=== PATIENT | female | born 1945 | race Caucasian/White ===

== ENCOUNTER 2017-11-20 02:24 | Outpatient (CLI) | payer MEDICARE, BC, SELFPAY ==
[2017-11-20 13:23] LABS: ALT 21 U/L (12-78); AST 24 U/L (15-37); Albumin 3.8 g/dL (3.4-5.0); Alkaline Phosphatase 72 U/L (46-116); Anion Gap 10.1 mmol/L (3-11); BUN 10 mg/dL (7-18); Bilirubin, Total 0.4 mg/dL (0.2-1.0); CO2 27.9 mmol/L (21.0-32.0); CREATININE 0.78 mg/dL (0.55-1.02); Calcium 8.7 mg/dL (8.5-10.1); Chloride 105 mmol/L (98-107); Cholesterol 248 mg/dL (50-200); Glucose 96 mg/dL (70-100); HDL Cholesterol 58 mg/dL (40-60); LDL CHOLESTEROL 176 mg/dL (<100); Potassium 3.8 mmol/L (3.5-5.1); Sodium 143 mmol/L (136-145); Total Protein 7.2 g/dL (6.4-8.2); Triglyceride 104 mg/dL (30-150)
== END 2017-11-20 02:44 ==
PROVIDERS: PCP Family Medicine; Visit Provider Family Medicine
DX: E78.5 Hyperlipidemia, unspecified (principal); R73.01 Impaired fasting glucose
CPT/HCPCS: 36415; 80053; 80061; 83721

== ENCOUNTER 2018-07-02 08:26 | Outpatient (CLI) | payer MEDICARE, BC, SELFPAY ==
[2018-07-02 10:58] LABS: Abs Immature Grans 0.01 k/cumm (0.0-0.09); Absolute Basophil Count 0.04 k/cumm (0.0-0.2); Absolute Eosinophil Count 0.08 k/cumm (0.0-0.7); Absolute Lymphocyte Count 1.75 k/cumm (1.2-3.4); Absolute Monocyte Count 0.39 k/cumm (0.11-0.7); Absolute Neutrophil Count 4.14 k/cumm (1.2-6.7); Basophils % 0.6; Eosinophils % 1.2; HCT 43.6 % (36.0-46.0); Immature Grans % 0.2; Lymphocytes % 27.3; Mean Corp. HGB Concentration 32.1 g/dL (32.0-36.0); Mean Corpuscular Volume 90.3 fL (80-95); Mean Platelet Volume 11.2 fL (8.0-11.0); Monocytes % 6.1; Neutrophils % 64.6; Platelet Count 326 x1000/uL (130-400); RBC 4.83 m/cumm (4.00-5.20); RBC Distribution Width 14.4 % (11.7-14.6); White Blood Cell Count 6.41 k/cumm (4.4-10.8)
[2018-07-02 11:37] LABS: ALT 27 U/L (12-78); AST 22 U/L (15-37); Alkaline Phosphatase 65 U/L (46-116); Anion Gap 9.6 mmol/L (3-11); BUN 18 mg/dL (7-18); Bilirubin, Total 0.4 mg/dL (0.2-1.0); CO2 28.4 mmol/L (21.0-32.0); CREATININE 0.81 mg/dL (0.55-1.02); Calcium 9.4 mg/dL (8.5-10.1); Chloride 104 mmol/L (98-107); Cholesterol 206 mg/dL (50-200); Glucose 114 mg/dL (70-100); HDL Cholesterol 59 mg/dL (40-60); LDL CHOLESTEROL 128 mg/dL (<100); Potassium 4.5 mmol/L (3.5-5.1); Sodium 142 mmol/L (136-145); Total Protein 7.6 g/dL (6.4-8.2); Triglyceride 107 mg/dL (30-150)
[2018-07-03 06:38] LABS: Vitamin D 25 Total 19.3 ng/ml (30-100)
== END 2018-07-02 08:46 ==
PROVIDERS: PCP Family Medicine; Visit Provider Family Medicine
DX: R53.83 Other fatigue (principal); I10 Essential (primary) hypertension; E55.9 Vitamin D deficiency, unspecified; E78.5 Hyperlipidemia, unspecified
CPT/HCPCS: 36415; 80053; 80061; 82306; 83721; 84443; 85025

== ENCOUNTER 2018-11-24 08:57 | Outpatient (CLI) | payer MEDICARE, BC, SELFPAY ==
[2018-11-24 13:44] LABS: Vitamin D 25 Total 15.9 ng/ml (30-100)
== END 2018-11-24 09:17 ==
PROVIDERS: PCP Family Medicine; Visit Provider Family Medicine
DX: E55.9 Vitamin D deficiency, unspecified (principal)
CPT/HCPCS: 36415; 82306

== ENCOUNTER 2019-07-14 10:54 | Outpatient (CLI) | payer OTHER, SELFPAY ==
--- NOTE | 2019-07-14 09:55 | DI.RAD_ITS ---
EXAM: XR SHOULDER LT COMPLETE 2+V CLINICAL HISTORY: lt shoulder pain. TECHNIQUE: 2D digital imaging was performed. COMPARISON: CR LEFT SHOULDER COMPLETE from 07/25/2016 CR LEFT SHOULDER COMPLETE from 07/25/2017 FINDINGS: BONES: The patient has a left shoulder replacement. There are osseous fragments seen at the inferior aspect of the glenoid. These were not present on the prior examination. Fracture should be conside red. The acuity is indeterminate. JOINTS: No dislocation present. SOFT TISSUE: Normal. IMPRESSION: 1. Left shoulder replacement. 2. Osseous fragments associated with the glenoid seen on the prior examination. A fracture of indete rminate acuity is suggested. A CT scan may be considered for further evaluation. DATA REPOSITORY: RADIATION DOSE DELIVERED:
== END 2019-07-14 11:14 ==
PROVIDERS: PCP Family Medicine; Referring Provider Family Medicine; Visit Provider Physician Assistant Surgical
DX: M25.512 Pain in left shoulder (principal); Z96.612 Presence of left artificial shoulder joint
CPT/HCPCS: 73030

== ENCOUNTER 2019-10-16 00:53 | Outpatient (CLI) | payer MEDICARE, BC, SELFPAY ==
[2019-10-16 13:09] LABS: ALT 24 U/L (14-59); AST 15 U/L (15-37); Albumin 3.8 g/dL (3.4-5.0); Alkaline Phosphatase 58 U/L (46-116); Anion Gap 8.6 mmol/L (3-11); BUN 16 mg/dL (7-18); Bilirubin, Total 0.3 mg/dL (0.2-1.0); CO2 28.4 mmol/L (21.0-32.0); CREATININE 0.81 mg/dL (0.55-1.02); Calcium 9.6 mg/dL (8.5-10.1); Calculated LDL 122 mg/dL (<100); Chloride 103 mmol/L (98-107); Cholesterol 193 mg/dL (<200); Glucose 118 mg/dL (74-106); HDL Cholesterol 53 mg/dL (40-60); Potassium 4.3 mmol/L (3.5-5.1); Sodium 140 mmol/L (136-145); Triglyceride 91 mg/dL (<150)
[2019-10-19 09:10] LABS: Vitamin D 25 Total 19.7 ng/ml (30-100)
== END 2019-10-16 01:13 ==
PROVIDERS: PCP Family Medicine; Visit Provider Family Medicine
DX: E55.9 Vitamin D deficiency, unspecified (principal); E78.5 Hyperlipidemia, unspecified
CPT/HCPCS: 36415; 80053; 80061; 82306

== ENCOUNTER 2020-06-22 01:18 | Outpatient (CLI) | payer MEDICARE, BC, SELFPAY ==
--- NOTE | 2020-06-22 07:00 | DI.RAD_ITS ---
EXAM: RF BARIUM SWALLOW UGI CLINICAL HISTORY: dysphagia with solids and dyspepsia,EPIGASTRIC PAIN,R10.13,R13.10 TECHNIQUE: 2D and real-time digital imaging was performed. CONTRAST MATERIAL: Both single and air contrast examinations were performed. Performed standing and recumbent COMPARISON: No exams were available for comparison FINDINGS: There is a large lamellated calcification in the right upper quadrant which is most probably a gallst one. Esophagus: Swallowing mechanism is grossly intact. There is no evidence of aspiration. No hypertens e upper esophageal sphincter. No Zenker's diverticulum. No fixed lesions seen in the esophagus. No hiatal hernia. However, there was a Schatzki ring demonstrated in the lower esophagus. No prominent reflux demonstrated. Stomach: No fixed lesions seen. No ulcer craters. Duodenum: No ulcer craters. No diverticuli. No strictures. Normal caliber. IMPRESSION: 1. There is a Schatzki ring demonstrated in the lower esophagus. This may be causing this patient's symptoms. No fixed neoplastic appearing lesions seen. 2. Stomach and duodenal C-loop appear unremarkable. 3. Incidentally noted is a large lamellated gallstone. This may be cause this patient's symptoms. R ecommend follow-up gallbladder ultrasound. RADIATION DOSE DELIVERED: sobia Issa= 52.9 mGy
[2020-06-22] MEDS: Barium Sulfate 60% W/V 355 ML BTL PO (10:27)
== END 2020-06-22 01:38 ==
PROVIDERS: PCP Family Medicine; Visit Provider Family Medicine
DX: R10.13 Epigastric pain (principal); R13.10 Dysphagia, unspecified; K22.2 Esophageal obstruction; K80.80 Other cholelithiasis without obstruction
CPT/HCPCS: 74221; 74246; J3490

== ENCOUNTER 2020-07-20 09:39 | Outpatient (CLI) | payer OTHER, SELFPAY ==
--- NOTE | 2020-07-20 09:41 | DI.RAD_ITS ---
Exam(s) XR SHOULDER LT COMPLETE 2+V EXAM: XR SHOULDER LT COMPLETE 2+V CLINICAL HISTORY: left shoulder pain. TECHNIQUE: 2D digital imaging was performed. COMPARISON: CR XR SHOULDER LT COMPLETE 2+V from 07/14/2019 FINDINGS: Again noted is a left shoulder prosthesis. This exhibits stable position. No fracture or loosening evident. Soft tissue calcific densities again noted. No radiographic evidence of osteomyelitis. Ip silateral AC joint appears unremarkable. IMPRESSION: DATA REPOSITORY: RADIATION DOSE DELIVERED:
== END 2020-07-20 09:40 | disposition home or self-care (01) ==
LOC: DIORS 09:40
PROVIDERS: PCP Family Medicine; Referring Provider Family Medicine; Visit Provider Student in an Organized Health Care Education/Training Program
DX: M25.512 Pain in left shoulder (principal); Z96.612 Presence of left artificial shoulder joint
CPT/HCPCS: 73030

== ENCOUNTER 2020-08-23 03:10 | Outpatient (CLI) | payer MEDICARE, BC, SELFPAY ==
[2020-08-23 12:29] LABS: ESR 10 mm/hr (0-30)
[2020-08-23 12:41] LABS: C-Reactive Protein 0.32 mg/dL (0.0-0.3)
[2020-08-24 10:37] LABS: Lyme Ab w Rflx to Lyme Confirm Negative (Negative)
[2020-08-25 00:51] LABS: Vitamin D 25 Total 24.9 ng/mL (30-100)
== END 2020-08-23 03:11 | disposition home or self-care (01) ==
LOC: LOS 03:10
PROVIDERS: PCP Family Medicine; Visit Provider Family Medicine
DX: M25.59 Pain in other specified joint; E55.9 Vitamin D deficiency, unspecified; W57.XXXA Bitten or stung by nonvenomous insect and other nonvenomous arthropods, initial encounter; T14.8XXA Other injury of unspecified body region, initial encounter
CPT/HCPCS: 36415; 82306; 85652; 86140; 86618

== ENCOUNTER 2021-06-21 04:31 | Outpatient (CLI) | payer MEDICARE, BC, SELFPAY ==
[2021-06-21 10:55] LABS: ALT 26 U/L (14-59); AST 21 U/L (15-37); Alkaline Phosphatase 65 U/L (46-116); Anion Gap 9.4 mmol/L (3-11); BUN 16 mg/dL (7-18); Bilirubin, Total 0.4 mg/dL (0.2-1.0); CO2 26.6 mmol/L (21.0-32.0); CREATININE 0.8 mg/dL (0.55-1.02); Calcium 9.1 mg/dL (8.5-10.1); Calculated LDL 105 mg/dL (<100); Chloride 105 mmol/L (98-107); Cholesterol 176 mg/dL (<200); Glucose 106 mg/dL (74-106); HDL Cholesterol 58 mg/dL (40-60); Potassium 4.4 mmol/L (3.5-5.1); Sodium 141 mmol/L (136-145); Total Protein 7.5 g/dL (6.4-8.2); Triglyceride 65 mg/dL (<150)
== END 2021-06-21 04:32 | disposition home or self-care (01) ==
LOC: LBO 04:32
PROVIDERS: PCP Nurse Practitioner Family; Visit Provider Family Medicine
DX: E78.5 Hyperlipidemia, unspecified (principal)
CPT/HCPCS: 36415; 80053; 80061

== ENCOUNTER 2022-08-08 03:40 | Outpatient (CLI) | payer MEDICARE, BC, SELFPAY ==
[2022-08-08 12:56] LABS: BUN 15 mg/dL (7-18); CREATININE 0.8 mg/dL (0.55-1.02); Calcium 9.1 mg/dL (8.5-10.1); Calculated LDL 100 mg/dL (<100); Chloride 105 mmol/L (98-107); Cholesterol 182 mg/dL (<200); Estimated GFR 77.27 (mL/min/1.73m2); Glucose 111 mg/dL (74-106); HDL Cholesterol 61 mg/dL (40-60); Potassium 3.3 mmol/L (3.5-5.1); Sodium 142 mmol/L (136-145); Triglyceride 107 mg/dL (<150)
[2022-08-08 13:36] LABS: Hemoglobin A1C 5.9 % (<5.7)
== END 2022-08-08 03:41 | disposition home or self-care (01) ==
LOC: LOS 03:41
PROVIDERS: PCP Nurse Practitioner Family; Visit Provider Nurse Practitioner Family
DX: I10 Essential (primary) hypertension (principal); R73.01 Impaired fasting glucose; E78.5 Hyperlipidemia, unspecified
CPT/HCPCS: 36415; 80048; 80061; 83036

== ENCOUNTER 2022-11-07 03:33 | Outpatient (CLI) | payer MEDICARE, BC, SELFPAY ==
[2022-11-07 13:32] LABS: Potassium 3.9 mmol/L (3.5-5.1)
== END 2022-11-07 03:34 | disposition home or self-care (01) ==
LOC: LBO 03:33
PROVIDERS: PCP Nurse Practitioner Family; Visit Provider Nurse Practitioner Family
DX: E87.6 Hypokalemia (principal)
CPT/HCPCS: 36415; 84132

== ENCOUNTER 2023-07-10 09:09 | Outpatient (CLI) | payer MEDICARE, BC, SELFPAY ==
[2023-07-10 10:55] LABS: Lab Add On Test DONE
[2023-07-10 12:21] LABS: Abs Immature Grans 0.03 10^3/uL (0.0-0.06); Absolute Basophil Count 0.08 10^3/uL (0.0-0.2); Absolute Eosinophil Count 0.11 10^3/uL (0.0-0.7); Absolute Lymphocyte Count 2.15 10^3/uL (1.2-3.4); Absolute Monocyte Count 0.58 10^3/uL (0.1-0.8); Absolute Neutrophil Count 5.14 10^3/uL (1.2-6.7); Eosinophils % 1.4 %; HCT 42.5 % (36.0-46.0); HGB 13.6 g/dL (11.2-15.7); Immature Grans % 0.4 %; Lymphocytes % 26.6 %; MCH 29.8 pg (27.0-33.0); MCV 93 fL (80-95); MPV 10.5 fL (8.0-11.0); Monocytes % 7.2 %; Neutrophils % 63.4 %; Platelet Count 359 10^3/uL (130-400); RBC 4.56 10^6/uL (3.93-5.22); RDW 13.3 % (11.7-14.6); RDW-SD 45.3 fL; WBC 8.09 10^3/uL (4.4-10.8)
[2023-07-10 12:35] LABS: ALT 24 U/L (14-59); AST 20 U/L (15-37); Alkaline Phosphatase 64 U/L (46-116); Anion Gap 9.4 mmol/L (3-11); BUN 17 mg/dL (7-18); Bilirubin, Total 0.5 mg/dL (0.2-1.0); CO2 27.6 mmol/L (21.0-32.0); Calcium 9.3 mg/dL (8.5-10.1); Chloride 105 mmol/L (98-107); Estimated GFR 58.75 (mL/min/1.73m2); Glucose 122 mg/dL (74-106); Potassium 3.8 mmol/L (3.5-5.1); Sodium 142 mmol/L (136-145); Total Protein 7.9 g/dL (6.4-8.2)
[2023-07-10 12:54] LABS: Calculated LDL 128 mg/dL (<100); Cholesterol 210 mg/dL (<200); HDL Cholesterol 64 mg/dL (40-60); Triglyceride 94 mg/dL (<150)
[2023-07-10 13:02] LABS: Hemoglobin A1C 6.3 % (<5.7)
[2023-07-10 13:17] LABS: Vitamin D 25 Total 21.9 ng/mL (30-100)
[2023-07-11 10:16] LABS: Hepatitis C Ab w Rflx HCV PCR Negative (Negative)
== END 2023-07-10 09:10 | disposition home or self-care (01) ==
LOC: LOS 09:09
PROVIDERS: PCP Nurse Practitioner Family; Visit Provider Nurse Practitioner Family
DX: Z11.59 Encounter for screening for other viral diseases (principal); R73.03 Prediabetes; Z00.00 Encounter for general adult medical examination without abnormal findings; R10.13 Epigastric pain; E78.5 Hyperlipidemia, unspecified
CPT/HCPCS: 36415; 80053; 80061; 82306; 86803; 83036; 85025

== ENCOUNTER 2024-08-11 03:31 | Outpatient (CLI) | payer MEDICARE, BC, SELFPAY ==
[2024-08-11 13:25] LABS: Anion Gap 7.9 mmol/L (3-11); BUN 15 mg/dL (7-18); CO2 29.1 mmol/L (21.0-32.0); Calcium 9.1 mg/dL (8.5-10.1); Calculated LDL 107 mg/dL (<100); Chloride 103 mmol/L (98-107); Cholesterol 178 mg/dL (<200); Estimated GFR 58.39 (mL/min/1.73m2); Glucose 131 mg/dL (74-106); HDL Cholesterol 51 mg/dL (>or=50); Sodium 140 mmol/L (136-145); Triglyceride 102 mg/dL (<150); Vitamin D 25 Total 22 ng/mL (30-100)
== END 2024-08-11 03:32 | disposition home or self-care (01) ==
LOC: LOS 03:31
PROVIDERS: PCP Nurse Practitioner Family; Visit Provider Nurse Practitioner Family
DX: E78.5 Hyperlipidemia, unspecified (principal); R73.03 Prediabetes; E55.9 Vitamin D deficiency, unspecified; I10 Essential (primary) hypertension
CPT/HCPCS: 36415; 80048; 80061; 82306

== ENCOUNTER 2024-08-13 15:58 | Emergency (ER) | payer MEDICARE, BC, SELFPAY ==
[2024-08-13 15:55] VITALS: BP 119/47; PULSE 88; RESP 20; TEMP 37.2; O2SAT 98
[2024-08-13 16:00] VITALS: BP 119/47; PULSE 88; RESP 20; TEMP 37.2; O2SAT 98
--- NOTE | 2024-08-13 16:00 | RT.EKG_ITS ---
APPROVED REPORT Exam: Resting ECG Reason for Exam: syncope Patient Location: E HR:92 bpm ECG Measurements Heart Rate 92 AXIS AR 171 P 81 QRSd 73 QRS 45 QT 387 T 58 QTc 479 Conclusion Sinus rhythm...normal P axis, V-rate 60- 99 Low voltage, precordial leads...precordial leads <1.0mV
--- NOTE | 2024-08-13 16:05 | ED.GENADUL_ITS ---
Discharge Plan Disposition Patient Disposition: Home Condition: Stable Discharge Details Clinical Impression: Heat exhaustion Primary Care Provider: Isabela Urrutia ED Provider: Ar Osullivan Home Meds and New Rx's Prescriptions: Continued cholecalciferol (vitamin D3) 50 mcg (2,000 unit) capsule 2,000 unit PO DAILY Qty: 90 3RF Rx Instructions: Take 1 daily aspirin 325 MG tablet 325 mg PO HS Qty: 1 Centrum Complete 1 EACH tablet 1 tab-cap PO DAILY Patient Comments: taking centrum silver for women.HE lovastatin 20 mg tablet 20 mg PO DAILY Qty: 90 3RF losartan 50 mg tablet See Rx Instructions .ROUTE .COMPLEX Qty: 90 3RF Dose Instruction: TAKE 1 TABLET BY MOUTH DAILY Rx Instructions: TAKE 1 TABLET BY MOUTH DAILY Discharge Instructions Additional Instructions: Your labs do not show any concerning findings at this time. Try to be in shade when it is hot and olga out. Follow-up with your primary care provider as needed. If you feel significantly more ill or have new symptoms such as difficulty breathing or severe abdominal chest pain return to the emergency department for reevaluation. HPI General Mode of arrival: EMS . Date/Time Provider Initiated Documentation: 08/13/24 16:00 . Limitations to Documentation: no limitations . Information obtained by: patient . History of Present Illness 78 year old F presents to the emergency department with the chief complaint of lethargic after being outside in hot weather, described as moderate, Patient started experiencing this hour(s) (1) No relieving factors improve symptom(s), No exacerbating factors reported . Patient notes denies chest pain and shortness of breath. Patient did receive the following treatments prior to arrival, none Related Data Home Medications ?Medication ?Instructions ?Recorded ?Confirmed aspirin 325 mg tablet 325 mg PO HS #1 tab-cap /05/0708/13/24 multivitamin-ferrous 1 tab-cap PO DAILY 07/16/13 08/13/24 fumarate-folic acid 18 mg-400 mcg tablet (Centrum Complete) cholecalciferol (vitamin D3) 50 2,000 unit PO DAILY #9 0 caps 08/07/23 08/13/24 mcg (2,000 unit) capsule lovastatin 20 mg tablet 20 mg PO DAILY #90 tabs 11/03/2008/13/24 losartan 50 mg tablet See Rx Instructions .Route 0 07/07/24 08/13/24 .COMPLEX #90 tabs Previous Rx's ?Medication ?Instructions ?Recorded cholecalciferol (vitamin D3) 50 2,000 unit PO DAILY #9 0 caps 08/07/23 mcg (2,000 unit) capsule lovastatin 20 mg tablet 20 mg PO DAILY #90 tabs 12/26 03/20 losartan 50 mg tablet See Rx Instructions .Route 0 07/07/24 .COMPLEX #90 tabs Allergies Allergy/AdvReac Type Severity Reaction Status Date / Time nitrofurantoin Allergy Intermediate Unknown Verified 08/13/24 16:01 macrocrystalline (From Macrodantin) codeine AdvReac Severe NAUSEA, Verified 08/13/24 16:01 VOMITING amlodipine AdvReac headaches Verified 08/13/24 16:01 Influenza Virus Vaccines AdvReac Makes me Verified 08/13/24 16:01 sick General Stated Complaint: AMS/LOC NABEEL: 3 Review of Systems All systems reviewed & are unremarkable except as noted in HPI and below Constitutional Constitutional: Denies chills, Denies fever(s) and Reports weakness Cardiovascular Cardiovascular: Denies chest pain and Denies dyspnea Respiratory Respiratory: Denies cough and Denies dyspnea Gastrointestinal Gastrointestinal: Denies abdominal pain, Denies nausea and Denies vomiting Neurologic Neurologic: Reports weakness Exam Const General: no acute distress Orientation: alert [facility] Head: normal to inspection Ears: external ears normal General nose exam: external nose normal Mouth: moist mucous membranes Eyes General: appearance normal, both eyes and all related structures Neck Neck: normal visual inspection Resp Effort & Inspection: normal respiratory effort and able to speak in complete sentences Auscultation: clear to auscultation bilaterally Cardio Rate: regular rate GI Palpation: soft and nontender Skin General skin exam: no rashes or lesions noted Neuro General: patient alert and patient oriented x3 Extrem General: normal to inspection Psych Mental Status: mental status grossly normal Course Vital Signs Vital signs: Vital Signs Temperature 37.2 C 08/13/24 15:55 Pulse 88 08/13/24 15:55 Respiratory Rate 08/13/24 15:55 Blood Pressure 119/47 L 08/13/24 15:55 Pulse Oximetry 98 08/13/24 15:55 Temperature 37.2 C 08/13/24 16:00 Pulse 88 08/13/24 16:00 Respiratory Rate 20 08/13/24 16:00 Blood Pressure 119/47 L 08/13/24 16:00 Pulse Oximetry 98 08/13/24 16:00 Oxygen Delivery Method Room Air 08/13/24 16:00 Oxygen Flow Rate 0 08/13/24 16:00 Pain Level 0 08/13/24 16:00 Medical Decision Making 78-year-old female with a history of prediabetes, hypertension, hyperlipidemia comes in with EMS after she was outside picking strawberries when she began to feel lightheaded and weak and had to crawl back to the house. EMS was called and they transported her here give her 500 mL of IV fluids. Patient is currently alert and oriented x 4 but does appear tired. She denies any headache, chest pain, difficulty breathing, abdominal pain. She is moving all extremities equally. I suspect heatstroke as it is hot and humid today. Will check CBC, CMP, troponins and EKG and treat with cool IV fluids and reassess. Will also check a CPK. Patient's labs without emergent findings. She is feeling better. states she was outside for quite some time so likely did overheat. Will see if she is able to ambulate on her own and if she is able to will plan for discharge. Patient was still having some nausea so was given Zofran and then seemed like she was anxious and given low-dose 0.5 mg of Ativan. 15 minutes later she felt significantly better requesting discharge and was able to stand up and move. She was instructed to stay out of the heat and stay in shade when it is hot out if she goes outside. She will follow-up with her PCP if needed and return precautions given Differential Diagnosis Differential Diagnosis: Dehydration, heatstroke Lab Data Lab results reviewed: Yes I reviewed the patient's lab results. ECG Data Attestation: I personally reviewed and interpreted this ECG (s) as follows: Prior ECG tracings: not available for review Interpretation: sinus rate of 92 pr 171 no stemi Quality:SDOH Health Related Social Needs: Health related social needs education PFSH All Active Problems (Updated 08/13/24 @ 18:31 by Ar Osullivan MD) Heat exhaustion (Acute) Prediabetes (Chronic) Hypertension (Chronic) Hyperlipidemia (Chronic) Arthritis of left shoulder region (Chronic) Dysphagia (Chronic) Vitamin D deficiency (Chronic) Surgical History S/P right inguinal hernia repair History of bilateral tubal ligation Status post appendectomy History of hemiarthroplasty of left shoulder (2002) Family History Mother , 84 Heart disease Hyperlipidemia Father , 82 Diabetes Stroke Hypertension Brother , 60 Cancer some type of abdominal cancer Hypertension Sister Heart disease Sister No problems noted. Sister No problems noted. Son No problems noted. Son No problems noted. Maternal Grandfather Prostate cancer Maternal Grandmother Thyroid disorder Paternal Grandfather No problems noted. Paternal Grandmother No problems noted. Social History Smoking/Tobacco Use Status: Never Tobacco: How many years used: 0 Second Hand Exposure: Yes Smoking risk assessment performed?: Yes Alcohol Intake: current Alcohol Intake frequency: holidays/special occasions only Alcohol type: wine Drug use: Never Substance use type: does not use Counseling given: No Caregiver/Support person: No Household members: spouse Housing: house Communication Needs: Hard of Hearing Do you need help understanding health information?: Often Pets and animals: No Do you think of yourself as: straight/heterosexual Current gender identity: female What is your relationship status?: Do you belong to any clubs or organized social groups?: no Panel score (0-1 are the most socially isolated patients): 1 Duration: 45-60 minutes/day Lety/Baptist: None Special lety needs: No Seatbelt use: always Drive intox or ride w/intox 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
[2024-08-13 16:11] VITALS: PULSE 87; RESP 17; TEMP 36.4; O2SAT 98
[2024-08-13 16:16] VITALS: RESP 16
[2024-08-13 16:19] LABS: Abs Immature Grans 0.03 10^3/uL (0.0-0.06); Absolute Basophil Count 0.06 10^3/uL (0.0-0.2); Absolute Eosinophil Count 0.06 10^3/uL (0.0-0.7); Absolute Lymphocyte Count 1.59 10^3/uL (1.2-3.4); Absolute Monocyte Count 0.58 10^3/uL (0.1-0.8); Absolute Neutrophil Count 7.79 10^3/uL (1.2-6.7); Basophils % 0.6 %; Eosinophils % 0.6 %; HCT 33.2 % (36.0-46.0); HGB 10.7 g/dL (11.2-15.7); Immature Grans % 0.3 %; Lymphocytes % 15.7 %; MCH 28.9 pg (27.0-33.0); MCHC 32.2 % (32.0-36.0); MCV 90 fL (80-95); MPV 10.4 fL (8.0-11.0); Monocytes % 5.7 %; Neutrophils % 77.1 %; Platelet Count 293 10^3/uL (130-400); RDW-SD 42.9 fL; WBC 10.11 10^3/uL (4.4-10.8)
[2024-08-13 16:51] LABS: ALT 16 U/L (14-59); AST 18 U/L (15-37); Albumin 3.3 g/dL (3.4-5.0); Alkaline Phosphatase 62 U/L (46-116); Anion Gap 10.8 mmol/L (3-11); BUN 18 mg/dL (7-18); Bilirubin, Total 0.4 mg/dL (0.2-1.0); CO2 23.2 mmol/L (21.0-32.0); Calcium 8.1 mg/dL (8.5-10.1); Chloride 104 mmol/L (98-107); Creatine Kinase 52 U/L (26-192); Estimated GFR 58.39 (mL/min/1.73m2); Glucose 133 mg/dL (74-106); Magnesium 2.1 mg/dL (1.8-2.4); Potassium 3.5 mmol/L (3.5-5.1); Sodium 138 mmol/L (136-145); Total Protein 6.7 g/dL (6.4-8.2); Troponin I 6 ng/L (<or=51)
[2024-08-13] MEDS: Normal Saline 1,000 ML 1000 ML IV (17:00)
[2024-08-13 18:21] LABS: Troponin I 7 ng/L (<or=51)
[2024-08-13] MEDS: Ondansetron 4 MG/2 ML VIAL IVP (18:59)
[2024-08-13] MEDS: LORazepam 20 MG/10 ML VIAL IVP (19:16)
== END 2024-08-13 19:35 | disposition home or self-care (01) ==
PROVIDERS: Emergency Provider Emergency Medicine; PCP Nurse Practitioner Family
DX: R42 Dizziness and giddiness (principal); R73.03 Prediabetes; T67.5XXA Heat exhaustion, unspecified, initial encounter; R53.1 Weakness
CPT/HCPCS: 99284 ×2; 96374; 96375; 36415; 36416; 82962; 80053; 82550; 93005; 96361; 83735; 84484; 85025; 93010; J2003; J2060; J2405